=== PATIENT | female | born 1935 | race Caucasian/White ===

== ENCOUNTER 2018-05-08 09:57 | Emergency (ER) | payer MEDICARE, SELFPAY ==
[2018-05-08 10:05] VITALS: BP 153/76; PULSE 68; RESP 16; TEMP 36.5; O2SAT 98
--- NOTE | 2018-05-08 10:19 | ED.GENADUL_ITS ---
Disposition Clinical Impression: Rash, Pruritus Disposition: HOME Condition: Stable Additional Instructions: Your rash appears to be a local skin reaction. You can take benadryl as needed for the symptoms, follow dosing instructions on the packaging. You can also try over the counter steroid cream. follow up with your primary care provider if symptoms are not improving this week if you have high fevers, severe pain or difficulty breathing return to the emergency department Medical Decision Making - Medical Decision Making Pt here with symptoms that could be contact dermatitis or other local allergic response. Has no findings to suggest anaphylaxis, will have her treat symptoms with prn benadryl and topical steroid cream. she is concerned about possible bed bugs, advised I do not believe these appear to be a rash typical of this but advised if other house hold members get similar rash they may need to dispose of bedding and clean. Will d/c home - Differential Diagnosis dermatitis, tick illness, urticaria History of Present Illness - General Chief complaint: RashLesion Stated complaint: RASH ON ARMS Time Seen by Provider: 05/08/18 10:09 Source: patient Mode of arrival: ambulatory Limitations: no limitations - History of Present Illness Initial comments: 82 yo female comes in with 2 days of multiple small <3mm red papules on her upper arms and thighs. Denies fevers, pain, known tick or bug bites. No sob or other symptoms, states the areas are itchy. Hasn't tried anything for these. Travelled to [place] recently otherwise no recent travel. No warmth or fluctuance to any of the rash or crepitus or pain MD Complaint: rash Onset/Timin -: days(s) Improves with: none Worsens with: none - Related Data Aspirin 81 mg PO DAILY tab-cap 06/15/14 Carvedilol [Coreg] 3.125 mg PO BID #180 tab-cap 06/01/17 Lorazepam 1 tab PO BID PRN #50 tab 10/17/17 Allergies Allergy/AdvReac Type Severity Reaction Status Date / Time metoprolol AdvReac Intermediate sick all Unverified 04/04/18 13:05 over atenolol AdvReac Tingling Unverified 04/04/18 13:05 in LE's atorvastatin AdvReac Nausea Unverified 04/04/18 13:05 clopidogrel bisulfate AdvReac esophageal Unverified 04/04/18 13:05 [From Plavix] spasm hydrochlorothiazide AdvReac Confusion Unverified 04/04/18 13:05 lisinopril AdvReac Nausea Unverified 04/04/18 13:05 Review of Systems Constitutional: denies: fever Respiratory: denies: shortness of breath Cardiovascular: denies: chest pain Musculoskeletal: denies: back pain Skin: rash Neurological: denies: headache Comment: All other systems reviewed and negative Past Medical History - Past Medical History Medical history: hypertension - Social History Alcohol use: none Drug use: none General Exam - General Limitations: no limitations General appearance: alert, in no apparent distress - Head Head exam: Present: atraumatic - Eye Eye exam: Present: normal apperance - ENT ENT exam: Present: mucous membranes moist - Neck Neck exam: Present: normal inspection - Respiratory Respiratory exam: Absent: respiratory distress - Cardiovascular Cardiovascular Exam: Present: regular rate - Neurological Exam Neurological exam: Present: alert, oriented X3 - Psychiatric Psychiatric exam: Present: normal affect - Skin Skin exam: Present: warm, rash Course Vital Signs - 24 hr 05/08/18 10:05 Temperature 97.7 F Pulse 68 Respiratory 16 Rate Blood Pressure 153/76 Pulse Oximetry 98
[2018-05-08 10:38] VITALS: BP 153/76; PULSE 68; RESP 16; TEMP 36.5; O2SAT 98
[2018-05-10 12:08] LABS: Lyme Ab w Rflx to Lyme Confirm Negative
[2018-05-10 22:27] LABS: Anaplasma phagocytophilum Negative (Negative); B. miyamotoi PCR Negative (Negative); Babesia divergens/MO-1 Negative (Negative); Babesia duncani Negative (Negative); Babesia microti Negative (Negative); Ehrlichia chaffeensis Negative (Negative); Ehrlichia ewingii/canis Negative (Negative); Ehrlichia muris eauclairensis Negative (Negative)
== END 2018-05-08 10:35 | disposition home or self-care (01) ==
PROVIDERS: Emergency Provider Emergency Medicine; PCP Family Medicine
DX: R21 Rash and other nonspecific skin eruption (principal); L29.9 Pruritus, unspecified; I10 Essential (primary) hypertension
CPT/HCPCS: 99282 ×2; 36415; 86618; 87798

== ENCOUNTER 2018-07-25 08:32 | Outpatient (CLI) | payer MEDICARE, SELFPAY ==
[2018-07-25 14:44] LABS: ALT 27 U/L (12-78); AST 22 U/L (15-37); Albumin 3.7 g/dL (3.4-5.0); Alkaline Phosphatase 66 U/L (46-116); Anion Gap 9.8 mmol/L (3-11); BUN 15 mg/dL (7-18); Bilirubin, Total 0.5 mg/dL (0.2-1.0); CO2 28.2 mmol/L (21.0-32.0); CREATININE 0.78 mg/dL (0.55-1.02); Calcium 9.2 mg/dL (8.5-10.1); Chloride 102 mmol/L (98-107); Glucose 110 mg/dL (70-100); Potassium 4.6 mmol/L (3.5-5.1); Sodium 140 mmol/L (136-145); Total Protein 6.7 g/dL (6.4-8.2)
== END 2018-07-25 08:52 ==
PROVIDERS: PCP Family Medicine; Visit Provider Family Medicine
DX: I10 Essential (primary) hypertension (principal)
CPT/HCPCS: 36415; 80053

== ENCOUNTER 2018-11-16 00:25 | Outpatient (CLI) | payer MEDICARE, SELFPAY ==
--- NOTE | 2018-11-16 07:30 | MERGE_ITS ---
*[facility]* *[facility]* [address] [place] [address] Date of study: 11/16/2018 Transthoracic Echocardiography M-mode, complete 2D, complete spectral Doppler, and color Doppler *STUDY CONCLUSIONS* Summary: 1. Left ventricle: The cavity size was normal. Wall thickness was increased in a pattern of mild LVH. Systolic function was normal. The estimated ejection fraction was 60-65%. Wall motion was normal; there were no regional wall motion abnormalities. 2. Mitral valve: Prior procedures included surgical repair. An annular ring prosthesis was present. Mild thickening, consistent with myxomatous proliferation. There was trivial regurgitation. Mean gradient (D): 3.1mm Hg at 62 bpm. 3. Left atrium: The atrium was mildly dilated. 4. Right ventricle: The cavity size was normal. Wall thickness was normal. Systolic function was normal. 5. Right atrium: The atrium was mildly dilated. 6. Tricuspid valve: There was mild-moderate regurgitation. 7. Pulmonary arteries: Pulmonary systolic pressure was increased, in the range of 40mm Hg to 45mm Hg. *PATIENT PRESENTATION* Height: 152.4cm ((60in) ) S/D Pressure: 144 / 75 Weight: 55.3kg ((121.7lb) ) BSA: 1.54m^2 Test start time: 07:40 AM. Test stop time: 08:40 AM. ORDERING Marychuy Cervantes REFERRING Marychuy Cervantes PERFORMING Unknown PERFORMING [facility] SHUT[employer] CAR RT Wilfredo PooleR)(SHASTA)VANESSA *PROCEDURE DATA* Procedure information: The patient was identified by two identifiers. This study was interpreted by [facility]. Pertinent images and digital data are archived for permanent storage and are available for subsequent review. Comparison was made to the study of 09/10/2016. Study status: Routine. Transthoracic echocardiography. M-mode, complete 2D, complete spectral Doppler, and color Doppler. A Transthoracic Echocardiogram was performed. Scanning was performed from the parasternal, apical, subcostal, and suprasternal notch acoustic windows. Images were obtained using an [id number] cardiac ultrasound machine. Image quality was adequate. Study completion: The patient tolerated the procedure well. There were no complications. History: PMH: Shortness of breath hypertension. I10, r06.02. *CARDIAC ANATOMY* Left ventricle: The cavity size was normal. Wall thickness was increased in a pattern of mild LVH. Systolic function was normal. The estimated ejection fraction was 60-65%. Wall motion was normal; there were no regional wall motion abnormalities. The study is not technically sufficient to allow evaluation of LV diastolic function. Aortic valve: Trileaflet; normal thickness leaflets. Mobility was not restricted. Doppler: Transvalvular velocity was within the normal range. There was no stenosis. There was no significant regurgitation. VTI ratio of LVOT to aortic valve: 0.76. Valve area (VTI): 2.4cm^2. Indexed valve area (VTI): 1.6cm^2/m^2. Peak velocity ratio of LVOT to aortic valve: 0.78. Valve area (Vmax): 2.5cm^2. Indexed valve area (Vmax): 1.6cm^2/m^2. Mean velocity ratio of LVOT to aortic valve: 0.77. Valve area (Vmean): 2.4cm^2. Indexed valve area (Vmean): 1.6cm^2/m^2. Mean gradient (S): 3.1mm Hg. Peak gradient (S): 4.3mm Hg. Aorta: Aortic root: The aortic root was normal in size. Ascending aorta: The ascending aorta was normal in size. Mitral valve: Prior procedures included surgical repair. An annular ring prosthesis was present. Mild thickening, consistent with myxomatous proliferation. Mobility was not restricted. Doppler: Transvalvular velocity was within the normal range. There was no evidence for stenosis. There was trivial regurgitation. Valve area by pressure half-time: 1.8cm^2. Indexed valve area by pressure half-time: 1.2cm^2/m^2. Mean gradient (D): 3.1mm Hg at 62 bpm. Peak gradient (D): 5.2mm Hg. Left atrium: The atrium was mildly dilated. Right ventricle: The cavity size was normal. Wall thickness was normal. Systolic function was normal. Pulmonic valve: Structurally normal valve. Doppler: Transvalvular velocity was within the normal range. There was no evidence for stenosis. There was mild regurgitation. Peak gradient (S): 2.2mm Hg. Tricuspid valve: Structurally normal valve. Doppler: Transvalvular velocity was within the normal range. There was no evidence for stenosis. There was mild-moderate regurgitation. Pulmonary artery: Pulmonary systolic pressure was increased, in the range of 40mm Hg to 45mm Hg. Right atrium: The atrium was mildly dilated. Pericardium: There was no pericardial effusion. Systemic veins: Inferior vena cava: Well visualized. The vessel was patent and normal in size. The respirophasic diameter changes were in the normal range (greater than or equal to 50%). Baseline ECG: Sinus bradycardia. Measurements Left ventricle Value 09/10/2016 Reference LV ID, ED, PLAX 3.7 cm 3.8 3.5 - 6.0 LV ID, ES, PLAX 2.5 cm 2.9 2.1 - 4.0 LV PW thickness, ED, PLAX 1.1 cm 1.2 LV end-diastolic volume, 65 ml 1-p A2C LV ejection fraction, 1-p 69 % 71 A2C LV end-diastolic volume, 74 ml 1-p A4C LV ejection fraction, 1-p 55 % 52 A4C LV e', lateral 0.074 m/sec LV E/e', lateral 15 LV e', medial 0.054 m/sec LV E/e', medial 21 LV e', average 0.064 m/sec LV E/e', average 18 Ventricular septum Value 09/10/2016 Reference IVS thickness, ED, PLAX 1.1 cm 1.1 LVOT Value 09/10/2016 Reference LVOT ID, A-P 2.0 cm 2.0 LVOT area 3.1 cm^2 3 LVOT peak velocity, S 0.81 m/sec 1.02 LVOT mean velocity, S 0.66 m/sec LVOT VTI, S 22.2 cm 26.2 LVOT peak gradient, S 2.7 mm Hg LVOT mean gradient, S 1.8 mm Hg 1.9 Stroke volume (SV), LVOT 70 ml DP Stroke index (SV/bsa), 45 ml/m^2 LVOT DP Aortic valve Value 09/10/2016 Reference Aortic valve peak 1 m/sec velocity, S Aortic valve mean 0.86 m/sec velocity, S Aortic valve VTI, S 29.0 cm Aortic mean gradient, S 3.1 mm Hg 4 Aortic peak gradient, S 4.3 mm Hg 6 VTI ratio, LVOT/AV 0.76 0.81 Aortic valve area, VTI 2.4 cm^2 2.6 Velocity ratio, peak, 0.78 LVOT/AV Aortic valve area, peak 2.5 cm^2 2.5 velocity Velocity ratio, mean, 0.77 LVOT/AV Aortic valve area, mean 2.4 cm^2 velocity Aortic valve area/bsa, 1.6 cm^2/m^2 mean velocity Aorta Value 09/10/2016 Reference Aortic root ID, ED 3.2 cm Ascending aorta ID, A-P, S 2.6 cm 2.6 Left atrium Value 09/10/2016 Reference LA ID, A-P, ES 3.8 cm LA ID/bsa, A-P (H) 2.5 cm/m^2 <=2.2 LA area, ES, A4C 22.8 cm^2 22 8.8 - 23.4 LA area, ES, A2C 14 cm^2 LA volume/bsa, ES, 1-p A4C 57 ml/m^2 42 LA volume, ES, 2-p 46 ml LA volume/bsa, ES, 2-p 30 ml/m^2 LA/aortic root ratio 1.2 0.85 Mitral valve Value 09/10/2016 Reference Mitral E-wave peak 1.14 m/sec 1.17 velocity Mitral A-wave peak 1.27 m/sec 1.12 velocity Mitral deceleration time (H) 421 ms 150 - 230 Mitral pressure half-time 122 ms 124 Mitral mean gradient, D 3.1 mm Hg Mitral peak gradient, D 5.2 mm Hg 5.4 Mitral E/A ratio, peak 0.9 1.04 Mitral valve area, PHT, DP 1.8 cm^2 1.8 Tricuspid valve Value 09/10/2016 Reference Tricuspid regurg peak 3.1 m/sec 2.7 velocity Tricuspid peak RV-RA 38.2 mm Hg 28.7 gradient Right atrium Value 09/10/2016 Reference RA area, ES, A4C 19.2 cm^2 15 8.3 - 19.5 Pulmonic valve Value 09/10/2016 Reference Pulmonic peak gradient, S 2.2 mm Hg 7.8 Legend: (L) and (H) deja values outside specified reference range. I have personally reviewed the images and have reviewed and edited the reported findings. Electronically signed by Lazaro Joe 11/16/2018 10:05
== END 2018-11-16 00:45 ==
PROVIDERS: PCP Family Medicine; Visit Provider Family Medicine
DX: R06.02 Shortness of breath (principal); I10 Essential (primary) hypertension; I51.7 Cardiomegaly; Z95.2 Presence of prosthetic heart valve
CPT/HCPCS: 93306

== ENCOUNTER 2018-11-23 00:18 | Outpatient (CLI) | payer MEDICARE, SELFPAY ==
--- NOTE | 2018-11-23 06:59 | MERGEMPI_ITS ---
*[facility]* *[facility]* [address] [place] [address] Myocardial Perfusion Imaging - SPECT Venkata protocol Date of study: 11/23/2018 *PATIENT PRESENTATION* Height: 154.9cm (61in) Blood Pressure: Weight: 56.4kg (124lb) BSA: 1.57m^2 Referring physician: Lazaro Joe Ordering physician: Marychuy Cervantes Impressions: - Study suggests small myocardial infarction, in the territory of the left anterior descending coronary artery. - No evidence for myocardial ischemia. Summary: 1. Myocardial perfusion imaging: There is a small sized, moderately intense, fixed defect involving the anterolateral wall(s). This suggests small myocardial infarction in the distribution of the left anterior descending coronary artery. 2. The calculated left ventricular ejection fraction after stress: 71%. LV global systolic function is normal. 3. Stress ECG conclusions: The stress ECG is negative. Occasional ventricular ectopy. 4. Stress: The target heart rate was achieved. The heart rate response to stress is normal. There is resting hypertension with an appropriate response to stress. The patient experienced no chest pain during stress. Exercise capacity is above normal for age. 5. Treadmill exercise testing was performed using the Venkata protocol. The patient exercised for 6 min, to protocol stage 2, to a maximal work rate of 7.5mets. Exercise was terminated due to fatigue. Recommendations: 1. Medical management is recommended. 2. Clinical correlation is recommended. Indication: R06.2, I10, Appropriate Use Criteria: A (Appropriate). History: REASON FOR TESTING: SOB AND FEELING WARM'/FLUSHED WHEN WALKING ON THE RAIL TRAIL. NO DIZZYNESS AND NO CHEST PAIN REPORTED WITH THE SOB. SHE DENIES CHEST PAIN UPON ARRIVAL TO TESTING TODAY. SIGNIFICANT PAST MEDICAL HISTORY: CT 2011, STENT PLACEMENT 08/2012, MITRAL VALVE REPAIR 09/2014. SMOKING STATUS: NEVER. EXERCISE ROUTINE: WINTER=WALKS 1.5 MILES AT THE MALL THREE TO FIVE DAYS A WEEK. SUMMER=WALKS ONE TO THREE MILES ON THE RAIL TRAIL THREE TO FIVE DAYS A WEEK. Risk factors: Family history of coronary artery disease. Hypertension. Dyslipidemia. Cholesterol: 225mg/dl. HDL: 99mg/dl. LDL: 117mg/dl. Triglycerides: 50mg/dl. ALLERGIES: METOPROLOL, ATENOLOL, ATORVASTATIN, PLAVIX, HYDROCHLOROTHIAZIDE, LISINOPRIL. MEDICATIONS: ASPIRIN 81 MG DAILY, COREG 3.125 MG BID. Imaging Technique: Protocol: Venkata protocol. Acquisition: Gated SPECT; 1 day - rest/stress. The patient was imaged in the supine position. Attenuation correction used. Isotope administration: - Rest. Tc[99m]-sestamibi. Dose: 10.8mCi. Injection time: 10:30 AM. Injection to stress time: 00:45. - Stress. Tc[99m]-sestamibi. Dose: 31.4mCi. Injection time: 01:25 PM. 1-2 min before end of exercise Baseline ECG: SINUS RHYTHM. HR 61 BPM. Normal ECG. Stress protocol: + +---+ + !Stage !HR !BP (mmHg) ! + +---+ + !Baseline supine !61 !170/88 (115) ! + +---+ + !Baseline standing !76 !180/100 (127)! + +---+ + !Stage I; 1.7mph, 10degrees; 3 min !101!160/80 (107) ! + +---+ + !Stage II; 2.5mph, 12degrees; 3 min!125!190/80 (117) ! + +---+ + !Peak stress !130! ! + +---+ + !Recovery; 1 min !101!210/72 (118) ! + +---+ + !Recovery; 3 min !82 !180/80 (113) ! + +---+ + !Recovery; 6 min !72 !160/80 (107) ! + +---+ + * Stress results: STRESS TEST ENDED IN 6 MINUTES 17 SECONDS DUE TO FATIGUE. NOTE: PATIENT TOOK CARVEDILOL 3.125 MG AT 0700 THIS MORNING. NORMAL HEART RATE RESPONSE TO EXERCISE. HYPERTENSIVE BLOOD PRESSURE AT BASELINE. BLOOD PRESSURE DECREASED BY 20 mm/Hg DURING STAGE 1 OF EXERCISE. OTHERWISE NORMAL BLOOD PRESSURE RESPONSE. MAX HEART RATE: 130 94 % OF TARGET HEART RATE ACHIEVED. MET'S: 7.46 FREQUENT PVC'S WITH EXERCISE AND FIRST MINUTE OF RECOVERY. OTHERWISE OCCASIONAL PVC'S. NO ANGINA. NO SIGNIFICANT ST SEGMENT CHANGES. FUNCTIONAL CAPACITY: ABOVE AVERAGE CAPACITY. Maximal heart rate during stress was 130bpm (94% of maximal predicted heart rate). The maximal predicted heart rate was 138bpm. The target heart rate was achieved. The heart rate response to stress is normal. There is resting hypertension with an appropriate response to stress. The rate-pressure product for the peak heart rate and blood pressure was 45390bd Hg/min. The patient experienced no chest pain during stress. Exercise capacity is above normal for age. Stress ECG: The stress ECG is negative. Occasional ventricular ectopy. Martinez treadmill score: 6. This score predicts a low risk of cardiac events. Myocardial perfusion: Imaging information: gated. The image quality was good. Left ventricular size is normal. There is a small sized, moderately intense, fixed defect involving the anterolateral wall(s). This suggests small myocardial infarction in the distribution of the left anterior descending coronary artery. Ventricular Function (Wall Motion): The calculated left ventricular ejection fraction after stress: 71%. LV global systolic function is normal. Study data: Lazaro Joe MD supervised and was readily available during the procedure. This study was interpreted by [facility]. Study status: Routine. Consent: The risks, benefits, and alternatives to the procedure were explained to the patient and informed consent was obtained. Procedure: Initial setup. A baseline ECG was recorded. Surface ECG leads and manual cuff blood pressure measurements were monitored. Heart sounds: Normal. Lung sounds: Normal. Treadmill exercise testing was performed using the Venkata protocol. The patient exercised for 6 min, to protocol stage 2, to a maximal work rate of 7.5mets. Exercise was terminated due to fatigue. Study completion: All catheters inserted during the procedure were removed. The patient tolerated the procedure well and was discharged from the lab. Discharge: The patient left the laboratory in stable condition. Birthdate: Patient birthdate: 1935. Sex: Gender: female. Study date: Study date: 11/23/2018. Study time: 00:01 AM. Signature Documentation: - The imaging portion of this study was interpreted by Nuclear Reed Fixer Lazaro Joe MD. - The imaging portion of this study was interpreted by Nuclear Radiologist Wiley Smith MD. - The Stress ECG portion of this study was interpreted by Lazaro Joe MD. Electronically signed by Lazaro Joe 11/23/2018 15:29
== END 2018-11-23 00:38 ==
PROVIDERS: PCP Family Medicine; Visit Provider Family Medicine
DX: R06.02 Shortness of breath (principal); I25.2 Old myocardial infarction; I10 Essential (primary) hypertension; E78.5 Hyperlipidemia, unspecified; Z82.49 Family history of ischemic heart disease and other diseases of the circulatory system; Z95.2 Presence of prosthetic heart valve
CPT/HCPCS: 78452; 93016; 93018; 93017

== ENCOUNTER 2018-11-24 11:32 | Outpatient (CLI) | payer MEDICARE, SELFPAY ==
[2018-11-24 12:57] LABS: Iron 84 ug/dL (50-175)
[2018-11-24 13:02] LABS: Hemoglobin A1C 6.1 % (4.5-6.2)
[2018-11-24 13:14] LABS: Absolute Basophil Count 0.02 k/cumm (0.0-0.2); Absolute Eosinophil Count 0.15 k/cumm (0.0-0.7); Absolute Lymphocyte Count 1.21 k/cumm (1.2-3.4); Absolute Monocyte Count 0.29 k/cumm (0.11-0.7); Absolute Neutrophil Count 2.39 k/cumm (1.2-6.7); Basophils % 0.5; Eosinophils % 3.7; HCT 34.7 % (36.0-46.0); HGB 11.4 g/dL (12.0-15.5); Lymphocytes % 29.8; Mean Corp. HGB Concentration 32.9 g/dL (32.0-36.0); Mean Corpuscular Hemoglobin 31.2 pg (27.0-33.0); Mean Corpuscular Volume 95.1 fL (80-95); Mean Platelet Volume 9.8 fL (8.0-11.0); Monocytes % 7.1; Neutrophils % 58.9; Platelet Count 196 x1000/uL (130-400); RBC 3.65 m/cumm (4.00-5.20); RBC Distribution Width 13.1 % (11.7-14.6); White Blood Cell Count 4.06 k/cumm (4.4-10.8)
[2018-11-24 13:24] LABS: ALT 18 U/L (12-78); AST 18 U/L (15-37); Albumin 3.3 g/dL (3.4-5.0); Alkaline Phosphatase 71 U/L (46-116); Anion Gap 4.3 mmol/L (3-11); BUN 25 mg/dL (7-18); Bilirubin, Total 0.4 mg/dL (0.2-1.0); CO2 29.7 mmol/L (21.0-32.0); CREATININE 0.74 mg/dL (0.55-1.02); Chloride 106 mmol/L (98-107); Cholesterol 237 mg/dL (50-200); Glucose 110 mg/dL (70-100); HDL Cholesterol 99 mg/dL (40-60); LDL CHOLESTEROL 111 mg/dL (<100); Potassium 4.3 mmol/L (3.5-5.1); Sodium 140 mmol/L (136-145); TSH (W/Ref FT4) 1.57 uIU/mL (0.358-3.74); Total Protein 6.3 g/dL (6.4-8.2); Triglyceride 84 mg/dL (30-150); Vitamin B12 507 pg/mL (193-986)
== END 2018-11-24 11:52 ==
PROVIDERS: PCP Family Medicine; Visit Provider Family Medicine
DX: R73.09 Other abnormal glucose (principal); I10 Essential (primary) hypertension; R71.8 Other abnormality of red blood cells; I27.20 Pulmonary hypertension, unspecified; I07.1 Rheumatic tricuspid insufficiency; R06.02 Shortness of breath
CPT/HCPCS: 36415; 80053; 80061; 83721; 82607; 83036; 83540; 84443; 85025

== ENCOUNTER 2019-09-25 20:30 | Emergency (ER) | payer MEDICARE, SELFPAY ==
[2019-09-25] VITALS (7 sets, daily range): BP systolic 146–191; BP diastolic 67–88; PULSE 64–89; RESP 13–21; TEMP 36.7; O2SAT 96–97
--- NOTE | 2019-09-25 20:50 | W.ED.GENAD ---
Discharge Plan Disposition Patient Disposition: HOME Condition: Stable Discharge Details Chief Complaint: GenMedical Clinical Impression: SOB (shortness of breath) Primary Care Provider: Marychuy Cervantes ED Provider: Mateusz Chester Home Meds and New Rx's Prescriptions: Continued ranitidine HCl 150 mg tablet 150 mg PO BID PRNRF: 0 aspirin [Aspirin Low-Strength] 81 MG tablet,chewable 81 mg PO DAILY RF: 0 lorazepam 0.5 MG tablet 1 tab PO BID PRNQty: 50 RF: 3 carvedilol [Coreg] 3.125 mg tablet 3.125 mg PO BID Qty: 180 RF: 12 Discharge Instructions Instructions: Dyspnea (ED) Additional Instructions: follow up with your primary care provider within a week if you feel more ill, have worsening shortness of breath or fevers or pain return to the emergency department Medical Decision Making <Lloyd Mendoza DO - Last Filed: 09/25/19 22:33> This is an 84-year-old female with a past medical history of previous myocardial infarction 5 years ago with a stent, mitral valve repair, no history of tobacco abuse, who presents today for evaluation of weakness and tremulousness. Patient states that today she went cross-country skiing, and after she went cross-country skiing she developed mild weakness in her arms and legs, and felt tremulous, as well as mild shortness of breath that resolved on its own. She states that this feels similar but slightly different than when she had her heart attack 5 years ago. She denies any chest pain, chest heaviness, chest tightness, arm neck or shoulder pain.. Exam is notably unremarkable. Differential includes mild dehydration, muscle spasms, but also certainly atypical cardiac etiology. Initial EKG does not demonstrate evidence of STEMI. Will do serial troponins, give full dose aspirin, and reassess. EKG 20: 56 Rate 75, intervals normal, sinus rhythm, inverted T wave in V1, bifid P wave, suggestive of left atrial enlargement. No Q waves except for in V1 and V2, no significant ST elevation or depression, no evidence of STEMI. Morphology of ST segments as well as the entire EKG is consistent with previous EKG on 07/15/2015. FINDINGS: Lungs: Hyperinflation, unchanged. No consolidation. Pleural space: Unremarkable. No pleural effusion. No pneumothorax. Heart/Mediastinum: Prior valve surgery. No cardiomegaly. Bones/joints: Scoliosis. Prior median sternotomy. Degenerative changes of the spine. Demineralization IMPRESSION: No acute findings. Thank you for allowing us to participate in the care of your patient. Dictated and Authenticated by: Mk Armendariz DO 09/25/2019 9:49 PM Eastern Time ([place] & [place]) <Mateusz Chester MD - Last Filed: 09/26/19 00:14> pt's troponin 0.07, remains asymptomatic so do not feel additional troponin indicated. She feels well enough and has no complaints, will d/c and have her f/u with pcp, return precautions given Lab Data Lab results reviewed: Yes I reviewed the patient's lab results. HPI <Lloyd Mendoza DO - Last Filed: 09/25/19 22:33> General Date/Time Provider Initiated Documentation: 09/25/19 20:36. HPI Narrative: This is an 84-year-old female with a past medical history of previous myocardial infarction 5 years ago with a stent, mitral valve repair, no history of tobacco abuse, who presents today for evaluation of weakness and tremulousness. Patient states that today she went cross-country skiing, and after she went cross-country skiing she developed mild weakness in her arms and legs, and felt tremulous, as well as mild shortness of breath that resolved on its own. She states that this feels similar but slightly different than when she had her heart attack 5 years ago. She denies any chest pain, chest heaviness, chest tightness, arm neck or shoulder pain. Denies PE risk factors such as recent long car rides, immobilization, recent surgery, prior history of DVT or PE, family history of PE or DVT, morbid obesity, exogenous estrogen and smoking, hemoptysis, history of cancer. Patient denies any other complaints at this time. No other modifying factors. Related Data Home Medications Medication Instructions Recorded Confirmed aspirin [Aspirin Low-Strength] 81 mg PO DAILY tab-cap 06/15/14 09/25/19 lorazepam 1 tab PO BID PRN #50 tab 10/17/17 09/25/19 carvedilol 3.125 mg tablet 3.125 mg PO BID #180 tab-cap 06/19/19 09/25/19 ranitidine HCl 150 mg tablet 150 mg PO BID PRN tab 07/04/19 09/25/19 Previous Rx's Medication Instructions Recorded carvedilol 3.125 mg tablet 3.125 mg PO BID #180 tab-cap 06/19/19 Allergies Allergy/AdvReac Type Severity Reaction Status Date / Time metoprolol AdvReac Intermediate sick all Unverified 09/25/19 20:40 over atenolol AdvReac Tingling Unverified 09/25/19 20:40 in LE's atorvastatin AdvReac Nausea Unverified 09/25/19 20:40 clopidogrel bisulfate AdvReac esophageal Unverified 09/25/19 20:40 [From Plavix] spasm hydrochlorothiazide AdvReac Confusion Unverified 09/25/19 20:40 lisinopril AdvReac Nausea Unverified 09/25/19 20:40 General Stated Complaint: GenMedical JULIANN: 3 Review of Systems <Lloyd Mendoza DO - Last Filed: 09/25/19 22:33> All systems reviewed & are unremarkable except as noted in HPI and below PFSH <Lloyd Mendoza DO - Last Filed: 09/25/19 22:33> Medical History (Updated 04/07/19 @ 11:46 by Rubi Valdez) Arthralgia of both hands (Chronic 04/04/18) Cataracts, bilateral (Resolved) 01/31/15 Chest pain (Resolved) EGD NEG; RELIEVED BY NM RELAXERS. Esophageal disorder (Chronic 12/23/16) Essential hypertension (Chronic 08/10/13) H/O mitral valve replacement (Chronic 11/26/16) Idiopathic scoliosis (Chronic) SEVERE Insomnia (Chronic 01/31/15) Left sided abdominal pain (Resolved) 06/17/17 Left sided sciatica (Chronic 03/18/17) LLQ abdominal pain (Resolved) 03/18/17 Lower extremity weakness (Resolved) 08/23/14 Mitral valve regurgitation (Chronic 08/29/13) moderate to severe by ech 09/01 repair 10/04 Myocardial infarction (Resolved) 11/01/12 Need for subacute bacterial endocarditis prophylaxis (Chronic 05/07/15) Piriformis muscle pain (Chronic 03/18/17) Pyloric ulcer associated with Helicobacter pylori (Resolved) biopsy results from endoscopy done in 09/28 Rash and nonspecific skin eruption (Resolved 05/19/18) Reactive airway disease (Resolved) 09/24/14 Shoulder pain (Resolved) 04/28/14 Skin lesions (Resolved 07/13/16) SOB (shortness of breath) (Chronic 11/26/16) Strain of left iliopsoas muscle (Chronic 03/18/17) Tachycardia (Resolved) 11/01/12 Tricuspid valve regurgitation (Chronic 08/29/13) moderate by echo 08/2013 Ventricular arrhythmia (Resolved) 09/25/12 Vitamin D deficiency (Chronic 11/28/15) Surgical History (Updated 04/07/19 @ 11:46 by Rubi Valdez) Endoscopy (~01/2013) Extraction of cataract 07/23/15; DR. JONES; RIGHT EYE 08/13/15; DR. JONES; LEFT EYE H/O cataract removal with insertion of prosthetic lens (Resolved) 07/23/15 O.D.-07/23/2015, O.S.-08/13/2015 History of intravascular stent placement (Resolved) 09/14/12 Mitral valve repair (10/15/14) Stent placement (09/14/12) Family History Mother , AGE 86 Essential hypertension Father , SUICIDE at age 76. Alcohol abuse Brother Heart disease CABG Son No problems noted. Daughter Essential hypertension Daughter No problems noted. Social History (Updated 10/11/18 @ 08:39 by Emilee Borrero) Smoking/Tobacco Use Status: Never Second Hand Exposure: Yes Alcohol Intake: current Alcohol Intake frequency: a few times a month Alcohol type: wine Drug use: Never Substance use type: does not use Caregiver/Support person: No Housing: apartment Pets and animals: No Sexually active: No Do you think of yourself as: straight/heterosexual Current gender identity: female Duration: 45-60 minutes/day Frequency: 5-6 times per week Zoe/Sikh: Scientology Special zoe needs: No Additional Social history: unable to assess privately Exam <Lloyd Mendoza DO - Last Filed: 09/25/19 22:33> Narrative Exam Narrative: 1.Const: Well-nourished, Well-developed, appearing stated age 2.Eyes: PERRL, no conjunctival injection, and symmetrical lids. 3.ENT: Atraumatic external nose and ears. Moist MM. Neck: Symmetric, trachea midline, No thyromegaly. 4.CVS: +S1/S2, No murmurs or gallops. Peripheral pulses 2+ and equal in all extremities. Brisk capillary refill in all extremities. Radial pulses equal bilaterally. 5.RESP: Unlabored respiratory effort. Clear to auscultation bilaterally. No wheezes rales or rhonchi 6.GI: Soft, Nontender/Nondistended, No hepatosplenomegaly. No guarding or rebound. 7.MSK: Normocephalic/Atraumatic, Extremities w/o deformity or ttp No cyanosis or clubbing, Normal movement of all extremities 8.Skin: Warm, Dry. No rashes or lesions. 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 Sensation grossly intact, no focal neurologic deficits. 10.Psych: (AAO) x3. Appropriate mood and affect Course <Lloyd Mendoza DO - Last Filed: 09/25/19 22:33> Vital Signs Vital signs: Vital Signs Temperature 36.7 C 09/25/19 20:37 Pulse 89 09/25/19 20:37 Respiratory Rate 20 09/25/19 20:37 Blood Pressure 182/88 H 09/25/19 20:37 Pulse Oximetry 96 09/25/19 20:37 Temperature 36.7 C 09/25/19 20:37 Pulse 89 09/25/19 20:37 Respiratory Rate 20 09/25/19 20:37 Respiratory Effort Non-Labored 09/25/19 20:41 Blood Pressure 182/88 H 09/25/19 20:37 Blood Pressure Position Sitting 09/25/19 20:37 Pulse Oximetry 96 09/25/19 20:37 Oxygen Delivery Method Room Air 09/25/19 20:37 Oxygen Flow Rate 0 09/25/19 20:37 Pain Level 0 09/25/19 20:37 Comment 09/25/19 20:37 Sign Out <Lloyd Mendoza DO - Last Filed: 09/25/19 22:33> Sign Out Data: Sign Out Comment: Pending serial troponins Last updated by Lloyd Mendoza DO at 09/25/19 23:01
--- NOTE | 2019-09-25 21:05 | DI.RAD_ITS ---
EXAM: XR CHEST 2V PA LATERAL INDICATION: chest pain. COMPARISON: No exams were available for comparison TECHNIQUE: 2D digital imaging was performed. FINDINGS: Severe scoliosis, sternal wires and valve prosthesis are again noted. The lungs appear clear. No in filtrate, effusion or pneumothorax is seen. IMPRESSION: No acute abnormality.
[2019-09-25 21:41] LABS: Abs Immature Grans 0.01 k/cumm (0.0-0.09); Absolute Basophil Count 0.02 k/cumm (0.0-0.2); Absolute Eosinophil Count 0.09 k/cumm (0.0-0.7); Absolute Lymphocyte Count 1.37 k/cumm (1.2-3.4); Absolute Neutrophil Count 3.09 k/cumm (1.2-6.7); Basophils % 0.4; Eosinophils % 1.8; HCT 35.7 % (36.0-46.0); Immature Grans % 0.2 %; Mean Corp. HGB Concentration 33.6 g/dL (32.0-36.0); Mean Corpuscular Hemoglobin 31.7 pg (27.0-33.0); Mean Corpuscular Volume 94.4 fL (80-95); Mean Platelet Volume 9.2 fL (8.0-11.0); Monocytes % 9.8; Neutrophils % 60.8; Platelet Count 199 x1000/uL (130-400); RBC 3.78 m/cumm (4.00-5.20); RBC Distribution Width 13.1 % (11.7-14.6); White Blood Cell Count 5.08 k/cumm (4.4-10.8)
--- NOTE | 2019-09-25 21:49 | DI.VRAD_ITS ---
PROCEDURE INFORMATION: Exam: XR Chest, 2 Views Exam date and time: 09/25/2019 8:50 PM Age: 84 years old Clinical indication: Prior surgery; Surgery date: 6+ months; Surgery type: Valve replacement 2014, stent placed 2011; Patient HX: Chest pain after cross country skiing today TECHNIQUE: Imaging protocol: XR of the chest Views: 2 views. COMPARISON: CR CHEST 2 VIEWS PA,LAT 01/28/2016 10:12 AM FINDINGS: Lungs: Hyperinflation, unchanged. No consolidation. Pleural space: Unremarkable. No pleural effusion. No pneumothorax. Heart/Mediastinum: Prior valve surgery. No cardiomegaly. Bones/joints: Scoliosis. Prior median sternotomy. Degenerative changes of the spine. Demineralization IMPRESSION: No acute findings. Dictated and Authenticated by: Mk Armendariz MD. Ordering:AYUSH Desai MD
[2019-09-25 22:03] LABS: ALT 21 U/L (14-59); AST 20 U/L (15-37); Albumin 3.7 g/dL (3.4-5.0); Alkaline Phosphatase 60 U/L (46-116); Anion Gap 10.8 mmol/L (3-11); BUN 16 mg/dL (7-18); Bilirubin, Total 0.5 mg/dL (0.2-1.0); CO2 26.2 mmol/L (21.0-32.0); CREATININE 0.83 mg/dL (0.55-1.02); Calcium 9.2 mg/dL (8.5-10.1); Chloride 105 mmol/L (98-107); Glucose 184 mg/dL (74-106); Potassium 3.9 mmol/L (3.5-5.1); Sodium 142 mmol/L (136-145); Total Protein 7.1 g/dL (6.4-8.2)
[2019-09-25 22:07] LABS: Lipase 111 U/L (73-393); Troponin I < 0.05 ng/Ml (<0.06)
[2019-09-25] MEDS: Normal Saline 500 ML IV (22:45)
[2019-09-25] MEDS: Aspirin 81 MG CHEW 324 MG CH (22:46)
[2019-09-26] LABS: Troponin I 0.07 ng/Ml (<0.06)
[2019-09-26 00:20] VITALS: BP 153/73; PULSE 67; RESP 18; TEMP 36.7; O2SAT 96
--- NOTE | 2019-09-26 07:16 | NUR.NOTE ---
Nursing Note: Referral for follow up faxed to PCP. Emilee Ontiveros.
== END 2019-09-26 00:25 | disposition home or self-care (01) ==
PROVIDERS: Student in an Organized Health Care Education/Training Program; Emergency Provider Emergency Medicine; PCP Family Medicine
DX: R06.02 Shortness of breath (principal); I25.10 Atherosclerotic heart disease of native coronary artery without angina pectoris; Z95.5 Presence of coronary angioplasty implant and graft; I10 Essential (primary) hypertension
CPT/HCPCS: 36415; 80053; 83690; 93005; 96360; 99285; 71046; 84484; 85025; 93010; 99284

== ENCOUNTER 2019-10-03 00:39 | Outpatient (CLI) | payer MEDICARE, SELFPAY ==
--- NOTE | 2019-10-03 11:14 | DI.NM_ITS ---
APPROVED REPORT Exam: Exercise Treadmill Patient Location: Out-Patient Room/Bed: Stress Nurse: Sary Barakat RN BMI: 23.61 Baseline Rhythm: Sinus Bradycardia Indications: Patient presented to the ER on 09/25/2019 after cross country skiing and ???feeling maida e when I got home??? and also had ???brain fog???. She reports her blood pressure in the ER was high approximately 200/89. She states she has not felt like herself since cross country skiing 1 week ago. She reports her last heart attack in 2011 was after snowshoeing and had no cardiac signs or symptoms except that she ???could not read the print on the newspaper???. Medical History Medical History: PA and stent placement in 08/2012, Mitral Valve Repair in 2011 Cardiac Medications: Aspirin, Carvedilol. Allergies: Metoprolol, Atenolol, Atorvastatin, Plavix, Hydrochlorothiazide, Lisinopril. Cardiac Risk Factors: FHX of CAD, HTN Previous Cardiac Procedures: Valve Replacement Pretest Chest Pain Characteristics: Just not feeling right Exercise History: Physically active Physical Disabilities: None Lung Sounds: Clear to auscultation Heart Sounds: Regular Stress Test Details Test: Exercise stress testing was performed using a Venkata protocol. Rest Isotope: Tc-99m Sestamibi. Dose: 10.2 Date: 10/03/2019 Injection Time: 0930 Stress Isotope: Tc-99m Sestamibi. Dose: 31.3 Date: 10/03/2019 Injection Time: 1140 HR Max Heart Rate (APMHR): 137 bpm Resting HR Supine: 55 bpm Target HR (85% APMHR): 116 bpm Resting HR Standin bpm Max HR Achieved: 141 bpm % of APMHR: 102 HR response to stress: Normal HR response to stress BP Resting BP Supine: 132/80 mmHg Resting BP Standin/80 mmHg Max BP: 178/70 mmHg BP response to stress: Normal blood pressure response to stress. ECG Resting ECG: Sinus Bradycardia with occasional to frequent PVC, and Occasional Ventricular Bigeminy ST Change: Normal Stress ECG: Sinus Tachycardia ST Change: Normal Arrhythmia: VPC's Recovery ECG: Sinus Rhythm Recovery ST Change: Normal Recovery Arrhythmia: None Clinical Reason for Termination: Fatigue Stress Symptoms: None Exercise duration: 6 min23 sec Highest Stage Achieved: Stage 3: 3.4 mph at 14% grade. Exercise capacity: 7.63 METs Functional Capacity: Average Capacity Stress ECG Conclusion 1. The patient exercised for 6 minutes and 23 seconds (7 METS) 2. The patient reached 102% of predicted heart rate and exercise was stopped due to fatigue. 3. There is no evidence of ischemia on the ECG portion of this exam Protocol Used: Venkata Protocol Stress Test Summary STAGE Time (mins) Speed (mph) Grade (%) HR BP SYMPTOMS METS Supine 55 132/80 Standing 66 120/80 1 3 1.7 10 99 142/84 4.6 2 6 2.5 12 122 154/82 7 3 9 3.4 14 10.2 4 12 4.2 16 12.9 5 15 5.0 18 17.2 1 min recovery 115 178/70 3 min recovery 87 160/80 6 min recovery 66 130/74 MPI Conclusion Patient's ejection fraction was 72% with stress. There were no wall motion abnormalities. There is a small fixed perfusion defect at the apex. There was no evidence of significant ischemia. This represents a normal SPECT stress test. Radiologist Interpretation Radiologist Interpretation by: Wiley Smith MD Interpretation Date/Time: 10/03/2019 16:30:21
== END 2019-10-03 00:59 ==
PROVIDERS: PCP Family Medicine; Visit Provider Family Medicine
DX: I25.10 Atherosclerotic heart disease of native coronary artery without angina pectoris (principal); I25.2 Old myocardial infarction; Z95.5 Presence of coronary angioplasty implant and graft; I10 Essential (primary) hypertension; Z82.49 Family history of ischemic heart disease and other diseases of the circulatory system
CPT/HCPCS: 78452; 93016; 93018; 93017

== ENCOUNTER 2019-10-11 09:49 | Outpatient (CLI) | payer MEDICARE, SELFPAY | END 2019-10-11 10:09 | PROVIDERS: PCP Family Medicine; Visit Provider Family Medicine | DX: I49.1 Atrial premature depolarization (principal); I47.2 Ventricular tachycardia | CPT/HCPCS: 93225 ==

== ENCOUNTER 2019-10-13 23:08 | Outpatient (CLI) | payer MEDICARE, SELFPAY ==
--- NOTE | 2019-10-16 08:27 | W.HOLTRPT ---
Date of service: 10/16/19 Time of Service: 08:27 Holter Monitor Report Holter Monitor Note: There is a 2-day Holter monitor ordered for the indication of arrhythmias ?The patient was in normal sinus rhythm for the majority of the recording. ?There were no episodes of supraventricular tachycardia and rare (less than 1%) premature atrial contractions. ?There were no episodes of ventricular tachycardia and occasional (2.6%) single ventricular ectopic beats. ?There were no pauses greater than 3 seconds, no atrial fibrillation and no evidence of high degree heart block. ?Patient diary events were associated with sinus rhythm, sinus tachycardia and occasional couplet of PVCs.
== END 2019-10-13 23:28 ==
PROVIDERS: PCP Family Medicine; Visit Provider Family Medicine
DX: I49.1 Atrial premature depolarization; I47.2 Ventricular tachycardia
CPT/HCPCS: 93226

== ENCOUNTER 2019-10-16 08:27 | Outpatient (CLI) | payer MEDICARE, SELFPAY | END 2019-10-16 08:47 | PROVIDERS: PCP Family Medicine; Referring Provider Family Medicine; Visit Provider Internal Medicine Cardiovascular Disease | DX: I49.1 Atrial premature depolarization (principal); I47.2 Ventricular tachycardia | CPT/HCPCS: 93227 ==

== ENCOUNTER 2019-10-25 02:23 | Outpatient (CLI) | payer MEDICARE, SELFPAY ==
--- NOTE | 2019-10-25 10:25 | DI.US_ITS ---
APPROVED REPORT EXAM: Comprehensive 2D, Doppler, and color-flow Echocardiogram Patient Location: Out-Patient Quarantine Officer: Eva Whitehead RDCS (AE) Rhythm: Bradycardia Indications: shortness of breath R06.02. Essential hypertension. I10 Conclusion Left Ventricle : The left ventricle is normal size. The left ventricular systolic function is normal. The left ventricular ejection fraction is within the normal range. Mild concentric left ventricular hypertrophy. There is normal LV segmental wall motion. There is grade 2 diastolic dysfunction. LVEF i s estimated to be 55-60%. Right Ventricle : The right ventricle is normal size. The right ventricular systolic function is norm al. Atria : The left atrium size is normal. The right atrium size is normal. Aortic Valve : Aortic valve is trileaflet. No aortic regurgitation is present. 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 No e vidence of mitral valve stenosis. Tricuspid Valve : The tricuspid valve leaflets are thickened , but open well. Moderate tricuspid regu rgitation. Great Vessels : The IVC is dilated in size and collapses >50% with inspiration. Estimated RVSP is 30 -40 mmHg. Compared to echocardiogram from 11/13/2014 at [facility], the mean mitral valve gradient has decreased. Diastolic function was not fully interrogated during that study but she now has elevated filling pressures. Wall motion Left Ventricle The left ventricle is normal size. The left ventricular systolic function is normal. The left ventric ular ejection fraction is within the normal range. Mild concentric left ventricular hypertrophy. Ther e is normal LV segmental wall motion. There is grade 2 diastolic dysfunction. LVEF is estimated to be 55-60%. Right Ventricle The right ventricle is normal size. The right ventricular systolic function is normal. Atria The left atrium size is normal. The right atrium size is normal. Aortic Valve Aortic valve is trileaflet. There is no aortic valvular stenosis. No aortic regurgitation is present. Mitral Valve Status post mitral valve repair (annuloplasty ring and Usman stitch) Mitral valve leaflets are mild ly thickened, consistent with myxomatous proliferation No evidence of mitral valve stenosis. Mild nati ral regurgitation. Tricuspid Valve The tricuspid valve leaflets are thickened , but open well. Moderate tricuspid regurgitation. Pulmonic Valve Pulmonic valve is not well visualized. Great Vessels The aortic root is normal in size. The IVC is dilated in size and collapses >50% with inspiration. Es timated RVSP is 30-40 mmHg. Pericardium There is no pericardial effusion. 2D Dimensions IVSd 1.15 cm F: 0.6-1.0 LV EDV A2C 50.7 mL PWd 1.15 cm F: 0.6 - 1.0 LV EDV A4C 40.0 mL LVDd 3.60 cm F: 3.8 - 5.2 LA Volume Index Biplane 42.1 mL/m2 LVDs 2.50 cm F: 2.2 - 3.5 LA Area A4C 20.28 cm2 Aortic Root 3.05 cm F: 2.7 - 3.3 LA Area A2C 19.84 cm2 RA Area A4C 15.40 cm2 EF AP4 54.8 % LVOT 1.95 cm (M/F) 1.5-2.5 EF AP2 64.1 % Ascending Aorta 2.88 cm F: 2.3 - 3.1 EF BP 59.9 % LVEF (Teich) 58.3 % IVC 2.32 cm LVEF (Coello's) 59.88 % F: 54 - 74 TAPSE 1.80 cm (M/F) <1.7 LV Volume 37.51 mL F: 46 - 106 LV Volume Index 24.35 mL/m2 F: 29 - 61 FS 30.05 % LV Diastology MV E' medial 0.069 (>0.07 m/s) E/A Ratio 1.0 LV E/e MED 17.15 (<14) PV S/D Ratio 2.34 MV E' lateral 0.091 (>0.1 m/s) TR Peak Velocity 2.82 m/s LV E/e LAT 12.90 (<14) Pulm Vein s 1.04 m/s Pulm Vein d 0.45 m/s Pulm Vein a 0.45 m/s LA vol/ BSA A2C s A-L 39.1 mL/m2 LA vol/ BSA A4C s A-L 43.0 mL/m2 Aortic Valve LVOT Area 3.07 cm2 AoV Area Vmax 2.19 cm2 LVOT Vmax 1.02 m/s AoV Area/ BSA (Vmax) 1.42 cm2/m2 LVOT Mean Merrill. 0.69 m/s LUIS ENRIQUE Mean Merrill. 2.04 cm2 LVOT Peak Gr. 4.2 mmHg LUIS ENRIQUE Mean Merrill. Index 1.32 cm2/m2 LVOT Mean Gr. 2.2 mmHg AV Regurg Decel. 1198 msec LVOT VTI 0.257 m AoV Vmax 1.43 (0.5-1.3 m/s) AoV Mean Merrill. 1.04 m/s AoV Peak Grad 8.1 mmHg LVOT SV 78.86 mL AoV Mean Grad 4.7 (<5 mmHg) AoV VTI 0.374 (0.18-0.25 m) AoV Area VTI 2.11 (2.5-4.5 cm2) AoV Area/ BSA (VTI) 1.36 cm/m2 Mitral Valve MV E Max Merrill. 1.18 (0.4-1.3 m/s) MVA VTI 2.81 (4.0-6.0 cm2) MV A Velocity 1.15 (0.4-1.3 m/s) RVOT Peak Gr. 1.99 mmHg E/A Ratio 0.98 RVOT Mean Gr. 1.15 mmHg MV Decel. Time 572 (160-240 msec) MV Mean Gr. 0.7 (<2mmHg) MV PHT 166 msec MVA PHT 1.30 cm2 PV Peak Velocity 0.71 (0.5-1.5 m/s) RVOT Peak Merrill. 0.70 m/s RVOT VTI 0.133 m Tricuspid Valve TR P. Gradient 31.7 mmHg TV Regurg Vmax 2.82 m/s RAP Estimate 8.00 mmHg RVSP 39.7 mmHg
== END 2019-10-25 02:43 ==
PROVIDERS: PCP Family Medicine; Visit Provider Family Medicine
DX: R06.02 Shortness of breath (principal); I10 Essential (primary) hypertension; I34.0 Nonrheumatic mitral (valve) insufficiency; I50.1 Left ventricular failure, unspecified; I25.10 Atherosclerotic heart disease of native coronary artery without angina pectoris; I47.2 Ventricular tachycardia
CPT/HCPCS: 93306

== ENCOUNTER 2020-01-03 01:09 | Outpatient (CLI) | payer MEDICARE, SELFPAY ==
--- NOTE | 2020-01-03 06:45 | DI.US_ITS ---
TECHNIQUE: Ultrasound abdomen performed using standard protocol. COMPARISON: No exams were available for comparison FINDINGS: ABDOMINAL AORTA AND IVC: No evidence of an abdominal aortic aneurysm. PANCREAS: Normal where visualized. LIVER: Normal. Hepatopedal flow in the Portal Vein. No hepatic mass is seen sonographically. GALLBLADDER: No evidence of cholelithiasis. No evidence of wall thickening. No pericholecystic fluid identified. BILIARY SYSTEM: Common bile duct measures 3.5 mm. No intrahepatic biliary ductal dilation. ADAMS'S SIGN: Negative. KIDNEYS: Kidneys are symmetric in size. No evidence of renal calculi. No evidence of hydronephrosis. No renal mass is identified. There is a 1.1 x 0.8 x 0.8 cm simple cyst on the left kidney. SPLEEN: Not enlarged. ASCITES: None seen. IMPRESSION: No acute abnormality. No evidence of cholelithiasis or biliary ductal dilatation. DATA REPOSITORY:
== END 2020-01-03 01:29 ==
PROVIDERS: PCP Family Medicine; Visit Provider Family Medicine
DX: R10.9 Unspecified abdominal pain (principal); N28.1 Cyst of kidney, acquired
CPT/HCPCS: 76700

== ENCOUNTER 2020-10-18 01:44 | Outpatient (CLI) | payer MEDICARE, SELFPAY ==
[2020-10-18 15:09] LABS: ALT 23 U/L (14-59); AST 21 U/L (15-37); Albumin 3.4 g/dL (3.4-5.0); Alkaline Phosphatase 62 U/L (46-116); Anion Gap 4.9 mmol/L (3-11); BUN 21 mg/dL (7-18); Bilirubin, Total 0.3 mg/dL (0.2-1.0); CO2 29.1 mmol/L (21.0-32.0); CREATININE 0.9 mg/dL (0.55-1.02); Calcium 8.9 mg/dL (8.5-10.1); Chloride 106 mmol/L (98-107); Estimated GFR 59.65 (mL/min/1.73m2); Glucose 132 mg/dL (74-106); Potassium 4.3 mmol/L (3.5-5.1); Sodium 140 mmol/L (136-145); Total Protein 6.4 g/dL (6.4-8.2)
== END 2020-10-18 02:04 ==
PROVIDERS: PCP Family Medicine; Visit Provider Family Medicine
DX: I10 Essential (primary) hypertension (principal)
CPT/HCPCS: 36415; 80053

== ENCOUNTER 2020-11-24 16:13 | Emergency (ER) | payer OTHER, MEDICARE, SELFPAY ==
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
--- NOTE | 2020-11-24 16:15 | RT.EKG_ITS ---
APPROVED REPORT Exam: Resting ECG Patient Location: E HR:88 bpm ECG Measurements Heart Rate 88 AXIS NJ 163 P 83 QRSd 129 QRS -6 QT 398 T 68 QTc 483 Conclusion Sinus rhythm...normal P axis, V-rate 60- 99 Atrial premature complexes...SV complexes w/ short R-R intvls Left atrial enlargement...P, P'>60mS, <-0.15mV V1 does not meet sgarbossa criteria IVCD, consider LBBB...QRSd>120, notch/slur R I aVL V5-6 Anterior infarct, acute...ST >0.25mV, V2-V5
[2020-11-24 16:23] VITALS: BP 174/95; PULSE 86; RESP 16; TEMP 36.4; O2SAT 98
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
[2020-11-24] MEDS: Acetaminophen 500 MG TAB 1000 MG PO (16:45)
[2020-11-24 17:26] LABS: Absolute Basophil Count 0.03 10^3/uL (0.0-0.2); Absolute Eosinophil Count 0.12 10^3/uL (0.0-0.7); Absolute Monocyte Count 0.49 10^3/uL (0.1-0.8); Absolute Neutrophil Count 7.59 10^3/uL (1.2-6.7); Basophils % 0.3; Eosinophils % 1.2; HCT 39.7 % (36.0-46.0); Lymphocytes % 14.4; MCH 31.9 pg (27.0-33.0); MCHC 32.7 % (32.0-36.0); MCV 97.5 fL (80-95); MPV 9.4 fL (8.0-11.0); Neutrophils % 78.1; Nucleated RBC 0 %; Platelet Count 181 10^3/uL (130-400); RBC 4.07 10^6/uL (3.93-5.22); RDW 12.6 % (11.7-14.6); RDW-SD 44.9 fL; WBC 9.73 10^3/uL (4.4-10.8)
[2020-11-24 17:39] LABS: ALT 44 U/L (14-59); AST 54 U/L (15-37); Alkaline Phosphatase 78 U/L (46-116); Anion Gap 8.4 mmol/L (3-11); BUN 18 mg/dL (7-18); Bilirubin, Total 0.6 mg/dL (0.2-1.0); CO2 27.6 mmol/L (21.0-32.0); CREATININE 0.9 mg/dL (0.55-1.02); Calcium 9.2 mg/dL (8.5-10.1); Chloride 103 mmol/L (98-107); Estimated GFR 59.65 (mL/min/1.73m2); Glucose 130 mg/dL (74-106); PTT Activated 23.3 sec (21.0-27.5); Potassium 4.2 mmol/L (3.5-5.1); Prothrombin Time 9.9 sec (9.3-11.0); Sodium 139 mmol/L (136-145); Total Protein 7.9 g/dL (6.4-8.2)
[2020-11-24 17:47] LABS: Troponin I 0.51 ng/mL (<0.06)
[2020-11-24] MEDS: Omnipaque 350 MG/ML 50 ML BTL IJ ×2 (18:02→18:03)
[2020-11-24] MEDS: Normal Saline - Diluent 50 ML VIAL IV (18:03)
[2020-11-24] MEDS: Normal Saline Flush 10 ML SYR IVP (18:03)
[2020-11-24 18:22] VITALS: BP 141/85; PULSE 96; RESP 18; TEMP 36.6; O2SAT 95
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
[2020-11-24 18:53] VITALS: PULSE 95; RESP 18; O2SAT 95
[2020-11-24 18:54] VITALS: BP 163/88; PULSE 95; RESP 20; O2SAT 95
[2020-11-24 19:00] VITALS: PULSE 99; RESP 19; O2SAT 97
[2020-11-24 19:01] VITALS: BP 165/97; PULSE 97; PULSE 99; RESP 20; O2SAT 97
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
[2020-11-24 21:45] LABS: COVID-19 PCR Negative (Negative)
== END 2020-11-24 20:05 | disposition short-term general hospital (02) ==
PROVIDERS: Emergency Provider Emergency Medicine; PCP Family Medicine
DX: S16.1XXA Strain of muscle, fascia and tendon at neck level, initial encounter (principal); S22.018A Other fracture of first thoracic vertebra, initial encounter for closed fracture; S22.41XA Multiple fractures of ribs, right side, initial encounter for closed fracture; R10.10 Upper abdominal pain, unspecified; R77.8 Other specified abnormalities of plasma proteins; V43.52XA Car driver injured in collision with other type car in traffic accident, initial encounter; Z03.818 Encounter for observation for suspected exposure to other biological agents ruled out
CPT/HCPCS: 36415; 74177; 80053; 93005; 99285; 70450; 71260; 72125; 84484; 85025; 85610; 85730; 93010; Q9967

== ENCOUNTER 2021-06-23 00:56 | Outpatient (CLI) | payer MEDICARE, SELFPAY ==
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
== END 2021-06-23 01:16 ==
PROVIDERS: PCP Family Medicine; Visit Provider Family Medicine
DX: R06.02 Shortness of breath (principal)
CPT/HCPCS: 71046

== ENCOUNTER 2021-07-02 04:09 | Outpatient (CLI) | payer MEDICARE, SELFPAY ==
[2021-07-02 12:44] LABS: ALT 20 U/L (14-59); AST 20 U/L (15-37); Albumin 3.6 g/dL (3.4-5.0); Alkaline Phosphatase 61 U/L (46-116); Anion Gap 7.8 mmol/L (3-11); BUN 19 mg/dL (7-18); Bilirubin, Total 0.5 mg/dL (0.2-1.0); CO2 30.2 mmol/L (21.0-32.0); CREATININE 0.9 mg/dL (0.55-1.02); Calcium 9.1 mg/dL (8.5-10.1); Calculated LDL 134 mg/dL (<100); Chloride 103 mmol/L (98-107); Cholesterol 243 mg/dL (<200); Estimated GFR 59.51 (mL/min/1.73m2); Glucose 109 mg/dL (74-106); HDL Cholesterol 99 mg/dL (40-60); Potassium 4.7 mmol/L (3.5-5.1); Sodium 141 mmol/L (136-145); Total Protein 6.7 g/dL (6.4-8.2); Triglyceride 53 mg/dL (<150)
== END 2021-07-02 04:10 | disposition home or self-care (01) ==
LOC: LBO 04:09
PROVIDERS: PCP Family Medicine; Visit Provider Family Medicine
DX: I10 Essential (primary) hypertension (principal)
CPT/HCPCS: 36415; 80053; 80061

== ENCOUNTER 2021-07-24 01:36 | Outpatient (CLI) | payer MEDICARE, SELFPAY ==
--- NOTE | 2021-07-24 13:01 | DI.US_ITS ---
APPROVED REPORT EXAM: Comprehensive 2D, Doppler, and color-flow Echocardiogram Patient Location: Out-Patient Lead Network Engineer: Romelia Stephenson RDCS (AE) Indications: Shortness of breath, H/O Mitral valve repair Other Information Study Quality: Adequate Conclusion Normal left ventricular wall thickness and chamber size. Estimated ejection fraction is 60 to 65%. Septal motion suggesting interventricular conduction delay/LBBB Grossly normal right ventricular size and function Both atria are normal in size Aortic valve is trileaflet without stenosis or regurgitation There has been prior mitral valve repair. There is trace to mild mitral regurgitation Normal tricuspid valve with moderate regurgitation. Estimated right ventricular systolic pressure is 39 mmHg Normal pulmonic valve with mild to moderate regurgitation Wall motion Left Ventricle The left ventricle is normal size. The left ventricular systolic function is normal. The left ventric ular ejection fraction is within the normal range. There is normal left ventricular wall thickness. T here is normal LV segmental wall motion. There is no ventricular septal defect visualized. LVEF is 60 -65% Right Ventricle Right ventricle is grossly normal in size. Right ventricular systolic function is grossly normal. The RVSP is 39.0 mmHg. Atria The left atrium size is normal. The right atrium size is normal. The interatrial septum is intact wit h no evidence for an atrial septal defect. Aortic Valve The aortic valve is normal in structure. Aortic valve is trileaflet. There is no aortic valvular sten osis. No aortic regurgitation is present. Mitral Valve Mitral annuloplasty changes are present. No evidence of mitral valve stenosis. Trace to mild mitral r egurgitation. Tricuspid Valve The tricuspid valve is normal in structure. There is no tricuspid valve stenosis. Moderate tricuspid regurgitation. RVSP 39 mmHg Pulmonic Valve The pulmonary valve is normal in structure. There is no pulmonic valvular stenosis. Mild to moderate pulmonic regurgitation. Great Vessels The aortic root is normal in size. The ascending aorta is normal in size. Aortic arch is normal in ca liber. IVC is normal in size and collapses >50% with inspiration. Pericardium There is no pericardial effusion. 2D Dimensions IVSD d PLAX 0.99 cm F: 0.6-1.0 LV Vol A2C d MOD 83.7 mL LVPW d PLAX 1.05 cm F: 0.6 - 1.0 LV Vol A4C d MOD 92.0 mL LVID d PLAX 4.11 cm F: 3.8 - 5.2 LA vol/ BSA A4C s A-L 26.2 mL/m2 LVDs 2.85 cm F: 2.2 - 3.5 LA Area A4C s MOD 14.98 cm2 Ao Root d 2.79 cm F: 2.7 - 3.3 LV EF A4C MOD 55.4 % RA Area A4C 8.99 cm2 LV EF A2C MOD 57.7 % RA Vol/ BSA A4C s A-L 13.5 mL/m2 LV EF Biplane MOD 55.9 % Ao Asc Diam d 3.18 cm F: 2.3 - 3.1 SV 50.45 mL LV EF Teichholz 57.7 % SV Index 32.28 mL/m2 LVEF (Coello's) 55.90 % F: 54 - 74 LV Volume 74.00 mL F: 46 - 106 LV Volume Index 47.43 mL/m2 F: 29 - 61 LV Vol Biplane MOD 90.2 mL FS 29.95 % M-Mode TAPSE 2.35 cm (M/F) >1.7 LV Diastology E/A Ratio 0.5 MV E Vmax 0.71 (0.4-1.3 m/s) MV A Vmax 1.30 (0.4-1.3 m/s) MV E/A Ratio 0.55 Aortic Valve LVOT Area 3.33 cm2 AoV Area Vmax 2.43 cm2 LVOT Vmax 0.96 m/s AoV Area/ BSA (Vmax) 1.56 cm2/m2 LVOT Mean Merrill. 0.69 m/s LUIS ENRIQUE Mean Merrill. 2.49 cm2 LVOT Peak Grad 3.7 mmHg LUIS ENRIQUE Mean Merrill. Index 1.60 cm2/m2 LVOT Mean Grad 2.1 mmHg LVOT VTI 0.200 m LVOT Diam s 2.05 cm AoV Vmax 1.32 m/s Velocity Ratio 0.72 AoV Mean Merrill. 0.92 m/s AoV Peak Grad 7.0 mmHg LVOT SV 66.72 mL AoV Mean Grad 3.8 mmHg AoV VTI 0.262 m AoV Area VTI 2.55 cm2 AoV Area/ BSA (VTI) 1.63 cm/m2 Mitral Valve MV DT 510 (160-240 msec) MR Vmax 5.28 m/s MV PHT 148 msec MR VTI 1.529 m MV Area PHT 1.49 cm2 MR Peak Grad 111.5 mmHg MV VTI 0.393 m MR Mean Grad 70.0 mmHg MV Area VTI 1.70 (4.0-6.0 cm2) Pulmonary Valve PV Vmax 1.11 (0.5-1.5 m/s) RVOT Peak Gr. 2.00 mmHg PV Peak Grad 4.9 mmHg RVOT Mean Gr. 1.05 mmHg PV Mean Grad 2.2 mmHg RVOT VTI 0.112 m PV VTI 0.173 m RVOT Vmax 0.71 m/s Tricuspid Valve TR Peak Grad 35.9 mmHg TR Vmax 3.00 m/s RA Pressure 3.00 mmHg RVSP (TR) 39.0 mmHg
== END 2021-07-24 01:56 ==
PROVIDERS: PCP Family Medicine; Visit Provider Family Medicine
DX: R06.02 Shortness of breath (principal); Z95.4 Presence of other heart-valve replacement; I08.8 Other rheumatic multiple valve diseases
CPT/HCPCS: 93306

== ENCOUNTER 2021-12-30 16:36 | Outpatient (CLI) | payer MEDICARE, SELFPAY ==
--- NOTE | 2021-12-30 16:30 | RT.EKG_ITS ---
APPROVED REPORT Exam: Resting ECG Reason for Exam: irregular heartbeat Patient Location: O HR:66 bpm ECG Measurements Heart Rate 66 AXIS NC 157 P 77 QRSd 127 QRS 1 QT 428 T 91 QTc 447 Conclusion Sinus rhythm...normal P axis, V-rate 60- 99 Left atrial enlargement...P, P'>60mS, <-0.15mV V1 Left bundle branch block...QRSd>120, broad/notched R ST elevation secondary to IVCD...Multiple VCG criteria
== END 2021-12-30 16:37 | disposition home or self-care (01) ==
LOC: DI.CM 16:38
PROVIDERS: PCP Family Medicine; Visit Provider Family Medicine
DX: I49.9 Cardiac arrhythmia, unspecified (principal)
CPT/HCPCS: 93010

== ENCOUNTER 2022-01-07 03:01 | Outpatient (CLI) | payer MEDICARE, SELFPAY ==
[2022-01-07 11:13] LABS: HCT 36.1 % (36.0-46.0); HGB 11.8 g/dL (11.2-15.7); MCH 31.6 pg (27.0-33.0); MCHC 32.7 % (32.0-36.0); MCV 96.8 fL (80-95); MPV 9.1 fL (8.0-11.0); Platelet Count 185 10^3/uL (130-400); RBC 3.73 10^6/uL (3.93-5.22); RDW 12.6 % (11.7-14.6); RDW-SD 44.7 fL; WBC 4.44 10^3/uL (4.4-10.8)
[2022-01-07 12:14] LABS: ALT 26 U/L (14-59); AST 21 U/L (15-37); Albumin 3.8 g/dL (3.4-5.0); Alkaline Phosphatase 62 U/L (46-116); Anion Gap 7.4 mmol/L (3-11); BUN 25 mg/dL (7-18); Bilirubin, Total 0.6 mg/dL (0.2-1.0); CO2 29.6 mmol/L (21.0-32.0); CREATININE 0.9 mg/dL (0.55-1.02); Calculated LDL 114 mg/dL (<100); Chloride 105 mmol/L (98-107); Cholesterol 222 mg/dL (<200); Estimated GFR 59.51 (mL/min/1.73m2); Glucose 113 mg/dL (74-106); HDL Cholesterol 98 mg/dL (40-60); Potassium 4.5 mmol/L (3.5-5.1); Sodium 142 mmol/L (136-145); TSH (W/Ref FT4) 2.59 uIU/mL (0.36-3.74); Total Protein 6.7 g/dL (6.4-8.2); Triglyceride 50 mg/dL (<150)
== END 2022-01-07 03:02 | disposition home or self-care (01) ==
LOC: LBO 03:01
PROVIDERS: PCP Family Medicine; Visit Provider Family Medicine
DX: I10 Essential (primary) hypertension (principal); I25.10 Atherosclerotic heart disease of native coronary artery without angina pectoris; R06.02 Shortness of breath
CPT/HCPCS: 36415; 80053; 80061; 85027; 84443

== ENCOUNTER → 2022-01-19 00:03 | Outpatient (CLI) | payer MEDICARE, SELFPAY ==
--- NOTE | 2022-01-19 07:45 | DI.NM_ITS ---
APPROVED REPORT Exam: Pharmacologic Patient Location: Out-Patient Room/Bed: Stress Nurse: Jackelyn Bird RN Ordering Provider:CHLOÉ MALONEY, Contact Number: [phone] BMI: 23.80 Baseline Rhythm: Sinus Bradycardia Comment: LBBB, occasional PACs and PVCs Indications: SOB, CAD Medical History Medical History: Hypertension, mitral valve repair, ventricular arrythmia, hx ID, DARY, SOB, CAD Cardiac Medications: Aspirin, carvedilol, albuterol Allergies: Metoprolol, atenolol, atorvastatin, clopidogrel, HCTZ, lisinopril Cardiac Risk Factors: Hypertension, CVD, family hx Previous Cardiac Procedures: LUIS (2015), mitral valve repair (2016) Pretest Chest Pain Characteristics: None Exercise History: Physically active Physical Disabilities: None Lung Sounds: Clear to auscultation Heart Sounds: Regular Stress Test Details Test: Pharmacologic stress was paired with low level exercise. Reason for pharmacologic stress test: LBBB. Nuclear Acquisition: Rest Tc-99m/Stress Tc-99m 1 day Rest Isotope: Tc-99m Sestamibi. Dose: 9.5 Date: 01/19/2022 Injection Time: 0850 Stress Isotope: Tc-99m Sestamibi. Dose: 32.0 Date: 01/19/2022 Injection Time: 1023 HR Resting HR Supine: 59 bpm Max Heart Rate (APMHR): 135.509440 bpm Resting HR Standin bpm Target HR (85% APMHR): 114.782553 bpm Max HR Achieved: 114 bpm % of APMHR: 84.44 Recovery HR: 74 bpm BP Resting BP Supine: 126/72 mmHg Resting BP Standin/68 mmHg Max BP: 142/78 mmHg Recovery BP: 128/80 mmHg BP response to stress: Normal blood pressure response to stress. ECG Resting ECG: Sinus Bradycardia, LBBB Ectopy: Occasional PACs and PVCs Stress ECG: Sinus Tachycardia, LBBB ST Change: Nondiagnostic LBBB Arrhythmia: Frequent PACs and PVCs Recovery ECG: Sinus Rhythm, LBBB Recovery ST Change: Nondiagnostic LBBB Recovery Arrhythmia: Frequent PACs and PVCs Clinical Stress Symptoms: General Fatigue, Dyspnea, Nausea Rate Pressure Product: [id number] Stress ECG Conclusion 1. Resting electrocardiogram showed a left bundle branch block 2. Patient underwent a combination of pharmacologic stress with regadenoson, coupled with low-level e xercise 3. Peak heart rate achieved was 84% of predicted for age 4. Electrocardiographic portion of the test was nondiagnostic due to LBBB 5. Atrial and ventricular ectopic beats were noted 6. See MPI report Stress Test Summary STAGE HR BP Symptoms NOTES Supine 59 126/72 SpO2 96% 1 min post Lexiscan injection 102 142/78 SpO2 96% Mild SOB 3 min post Lexiscan injection 86 142/76 SpO2 96% Mild SOB, mild nausea 6 min post Lexiscan injection 74 128/80 SpO2 97% SOB resolved, nausea improving Pharmacologic stress was paired with low level exercise due to LBBB. Pt walked at 1.5-1.7 mph and 0% grade during Regadenoson administration. Tolerated testing well. MPI Conclusion Normal myocardial perfusion without evidence of ischemia or prior infarction EF 60%, normal wall motion Radiologist Interpretation Radiologist agrees with Curriculum Development Manager's Interpretation. Radiologist Interpretation by: Marilu Allen MD Interpretation Date/Time: 01/19/2022 15:11:07
[2022-01-19] MEDS: Regadenoson 0.4 MG/5 ML SYR IVP (10:42)
== END ==
PROVIDERS: PCP Family Medicine; Visit Provider Family Medicine
DX: I25.10 Atherosclerotic heart disease of native coronary artery without angina pectoris (principal); R06.02 Shortness of breath
CPT/HCPCS: 78452; 93016; 93018; 93017; J2785

== ENCOUNTER → 2022-08-20 15:48 | Outpatient (CLI) | payer MEDICARE, SELFPAY ==
--- NOTE | 2022-08-20 15:35 | DI.RAD_ITS ---
Exam(s) XR HIP LT COMPLETE AP PELVIS EXAM: XR HIP LT COMPLETE AP PELVIS CLINICAL HISTORY: Lt hip pain, M25.552, s/p fall. r/o fx hip and pelvis TECHNIQUE: COMPARISON: CR BILATERAL HIPS ADULT from 05/07/2016 FINDINGS: Two views were obtained. There is marked scoliosis of the lumbar spine. There are sclerotic changes adjacent to the pubic symphysis. There are mild degenerative changes of the SI joints and both hips . There is no evidence of acute fracture or dislocation involving the left hip. IMPRESSION: RADIATION DOSE DELIVERED: Total DLP
== END ==
PROVIDERS: PCP Family Medicine; Visit Provider Nurse Practitioner Family
DX: M16.0 Bilateral primary osteoarthritis of hip (principal)
CPT/HCPCS: 73502

== ENCOUNTER 2022-12-25 03:34 | Outpatient (CLI) | payer MEDICARE, SELFPAY ==
[2022-12-25 15:51] LABS: HCT 36.4 % (36.0-46.0); HGB 12.2 g/dL (11.2-15.7); MCHC 33.5 % (32.0-36.0); MCV 96 fL (80-95); MPV 9.3 fL (8.0-11.0); Platelet Count 178 10^3/uL (130-400); RBC 3.81 10^6/uL (3.93-5.22); RDW 12.8 % (11.7-14.6); RDW-SD 44.5 fL; WBC 4.18 10^3/uL (4.4-10.8)
[2022-12-25 16:03] LABS: ALT 25 U/L (14-59); AST 19 U/L (15-37); Albumin 3.6 g/dL (3.4-5.0); Alkaline Phosphatase 71 U/L (46-116); Anion Gap 4.9 mmol/L (3-11); BUN 21 mg/dL (7-18); Bilirubin, Total 0.3 mg/dL (0.2-1.0); CO2 31.1 mmol/L (21.0-32.0); CREATININE 0.9 mg/dL (0.55-1.02); Calcium 9.1 mg/dL (8.5-10.1); Chloride 105 mmol/L (98-107); Estimated GFR 62.26 (mL/min/1.73m2); Glucose 70 mg/dL (74-106); Potassium 3.8 mmol/L (3.5-5.1); Sodium 141 mmol/L (136-145); Total Protein 6.9 g/dL (6.4-8.2)
== END 2022-12-25 03:35 | disposition home or self-care (01) ==
PROVIDERS: PCP Family Medicine; Visit Provider Family Medicine
DX: I10 Essential (primary) hypertension (principal); I25.10 Atherosclerotic heart disease of native coronary artery without angina pectoris; G47.00 Insomnia, unspecified
CPT/HCPCS: 36415; 80053; 85027

== ENCOUNTER 2023-07-30 15:02 | Outpatient (CLI) | payer MEDICARE, SELFPAY ==
[2023-07-30 13:54] LABS: ALT 19 U/L (14-59); AST 18 U/L (15-37); Albumin 3.7 g/dL (3.4-5.0); Alkaline Phosphatase 63 U/L (46-116); Anion Gap 8.8 mmol/L (3-11); BUN 24 mg/dL (7-18); Bilirubin, Total 0.4 mg/dL (0.2-1.0); CO2 28.2 mmol/L (21.0-32.0); CREATININE 1.1 mg/dL (0.55-1.02); Calcium 9.5 mg/dL (8.5-10.1); Calculated LDL 108 mg/dL (<100); Chloride 103 mmol/L (98-107); Cholesterol 226 mg/dL (<200); Estimated GFR 48.63 (mL/min/1.73m2); Glucose 86 mg/dL (74-106); HDL Cholesterol 101 mg/dL (40-60); Potassium 4.3 mmol/L (3.5-5.1); Sodium 140 mmol/L (136-145); Triglyceride 85 mg/dL (<150)
== END 2023-07-30 15:03 | disposition home or self-care (01) ==
LOC: LBO 15:03
PROVIDERS: PCP Family Medicine; Visit Provider Family Medicine
DX: I10 Essential (primary) hypertension (principal)
CPT/HCPCS: 36415; 80053; 80061

== ENCOUNTER → 2023-09-14 12:56 | Outpatient (CLI) | payer MEDICARE, SELFPAY ==
--- NOTE | 2023-09-14 14:50 | DI.RAD_ITS ---
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 TECHNIQUE: 2D digital imaging was performed. Seven views were performed. Lateral views in flexion and extension were performed in addition to the routine views. COMPARISON: CR CERV SP.WITH OBL OR FLEX/EXT from 08/23/2014 FINDINGS: BONES: No fracture or destructive lesion. Vertebral bodies are unremarkable. Facet degenerative baldwin es. DISKS: Severe disc space narrowing and endplate osteophytes. Limited range of motion with flexion an d extension. No subluxation. ALIGNMENT: Reversal of the normal cervical lordosis. Scoliosis. The odontoid and atlantoaxial artic ulations are normal. SOFT TISSUE: Normal. The lung apices are clear. IMPRESSION: Severe degenerative disc changes. Scoliosis. DATA REPOSITORY: RADIATION DOSE DELIVERED:
== END ==
PROVIDERS: PCP Family Medicine; Visit Provider Family Medicine
DX: G62.9 Polyneuropathy, unspecified (principal); M41.82 Other forms of scoliosis, cervical region
CPT/HCPCS: 36415; 72052; 82607; 84443

== ENCOUNTER 2023-09-14 16:46 | Outpatient (CLI) | payer MEDICARE, SELFPAY ==
[2023-09-14 16:25] LABS: Vitamin B12 443 pg/mL (193-986)
== END 2023-09-14 16:47 | disposition home or self-care (01) ==
LOC: LBO 16:47
PROVIDERS: PCP Family Medicine; Visit Provider Family Medicine
DX: G62.9 Polyneuropathy, unspecified (principal); R53.83 Other fatigue
CPT/HCPCS: 36415; 82607; 84443

== ENCOUNTER 2023-12-14 05:17 | Outpatient (CLI) | payer MEDICARE, SELFPAY ==
[2023-12-14 16:53] LABS: ALT 18 U/L (14-59); AST 17 U/L (15-37); Albumin 3.4 g/dL (3.4-5.0); Alkaline Phosphatase 67 U/L (46-116); Anion Gap 6.2 mmol/L (3-11); BUN 21 mg/dL (7-18); Bilirubin, Total 0.5 mg/dL (0.2-1.0); CO2 29.8 mmol/L (21.0-32.0); Calcium 9.1 mg/dL (8.5-10.1); Calculated LDL 101 mg/dL (<100); Chloride 105 mmol/L (98-107); Cholesterol 212 mg/dL (<200); Estimated GFR 54.53 (mL/min/1.73m2); Glucose 138 mg/dL (74-106); HDL Cholesterol 93 mg/dL (40-60); Potassium 3.8 mmol/L (3.5-5.1); Sodium 141 mmol/L (136-145); Total Protein 6.7 g/dL (6.4-8.2); Triglyceride 94 mg/dL (<150)
== END 2023-12-14 05:18 | disposition home or self-care (01) ==
PROVIDERS: PCP Family Medicine; Visit Provider Family Medicine
DX: I10 Essential (primary) hypertension (principal)
CPT/HCPCS: 36415; 80053; 80061

== ENCOUNTER 2024-07-05 02:02 | Outpatient (CLI) | payer MEDICARE, SELFPAY ==
--- NOTE | 2024-07-05 14:30 | DI.US_ITS ---
APPROVED REPORT EXAM: Comprehensive 2D, Doppler, and color-flow Echocardiogram Patient Location: Out-Patient Bundle Person: Romelia Stephenson RDCS (AE) Indications: Pulmonary HTN, h/o Mitral valve ring repair Other Information Study Quality: Adequate Conclusion Mild concentric left ventricular hypertrophy. Ejection fraction is 60%. Wall motion is normal Normal right ventricular size and function Both atria are normal in size Trileaflet aortic valve without stenosis or regurgitation Mildly thickened mitral leaflets, evidence of prior mitral valve repair. Trace mitral regurgitation Normal tricuspid valve with mild to moderate regurgitation. Estimated right ventricular systolic pre ssure is 46 mmHg Wall motion Left Ventricle The left ventricle is normal size. The left ventricular systolic function is normal. The left ventric ular ejection fraction is within the normal range. Mild concentric left ventricular hypertrophy There is normal LV segmental wall motion. There is no ventricular septal defect visualized. LVEF is 60%. Right Ventricle The right ventricle is normal size. The right ventricular systolic function is normal. Atria The left atrium size is normal. The right atrium size is normal. The interatrial septum is intact wit h no evidence for an atrial septal defect. Aortic Valve The aortic valve is normal in structure. Aortic valve is trileaflet. There is no aortic valvular sten osis. No aortic regurgitation is present. Mitral Valve Mitral annuloplasty changes are present. No evidence of mitral valve stenosis. Trace mitral regurgita tion. Tricuspid Valve The tricuspid valve is normal in structure. There is no tricuspid valve stenosis. Mild to moderate t ricuspid regurgitation. The RVSP is 45.8 mmHg. Pulmonic Valve The pulmonary valve is normal in structure. There is no pulmonic valvular stenosis. Trace pulmonic re gurgitation. Great Vessels The aortic root is normal in size. The ascending aorta is normal in size. Aortic arch is not well vis ualized. IVC is normal in size and collapses >50% with inspiration. Pericardium There is no pericardial effusion. 2D Dimensions IVSD d PLAX 1.12 cm F: 0.6-1.0 Ao Root d 2.74 cm F: 2.7 - 3.3 LVPW d PLAX 1.00 cm F: 0.6 - 1.0 Ao Asc Diam d 2.81 cm F: 2.3 - 3.1 LVID d PLAX 4.32 cm F: 3.8 - 5.2 LVDs 2.99 cm F: 2.2 - 3.5 LV EF Teichholz 58.6 % FS 30.73 % LV EDV (Teich) 83.8 mL LV ESV (Teich) 34.7 mL M-Mode TAPSE 1.49 cm (M/F) >1.7 Auto EF LV EDV A4C 88.4 mL LV EDV A2C 69.0 mL LV EDV BP 80.2 mL LV ESV A4C 38.6 mL LV ESV A2C 27.4 mL LV ESV BP 32.9 mL LVEF(%) A4C 56.4 % LVEF(%) A2C 60.3 % LVEF(%) BP 59.0 % LV SV A4C 49.9 ml LV SV A2C 41.6 ml LV SV BP 47.3 ml LV CO A4C 3.4 L/min LV CO A2C 2.8 L/min LV CO BP 3.1 L/min HR A4C 67.27 BPM HR A2C 66.55 BPM LV EDV Index (BP) LA Volume LA Length A4C 4.1 cm LA Length A2C 4.9 cm LA Area A4C s 14.83 cm2 LA Area A2C s 16.34 cm2 LA Vol A4C A-L 45.42 mL LA Vol A2C A-L 46.02 mL LA Vol Biplane A-L 50.0 mL LA Vol/BSA A4C A-L LA Vol/BSA A2C A-L LA Vol/BSA BP A-L 34.0 mL/m2 LA Vol A4C MOD 40.1 mL LA Vol A2C MOD 44.2 mL LA Vol BP MOD 45.8 mL RA Volume RA Area A4C 11.0 cm2 RA ESV A4C (A-L) 27.1mL RA Vol/BSA A4C A-L RA Length A4C 3.8 cm RA ESV A4C (MOD) 25.5mL LV Diastology MV E Vmax 1.07 (0.4-1.3 m/s) MV A Vmax 1.30 (0.4-1.3 m/s) E/A Ratio 0.8 Aortic Valve AoV Vmax 1.15 m/s LVOT Vmax 0.95 m/s AoV Peak Grad 5.3 mmHg LVOT Peak Grad 3.6 mmHg AoV Area (Vmax) 2.44 cm2 LVOT VTI 0.239 m AoV VTI 0.310 m LVOT Mean Grad 2.2 mmHg AoV Mean Merrill. 0.88 m/s LVOT SV 70.81 mL AoV Mean Grad 3.4 mmHg LVOT Diam s 1.90 cm AoV Area (VTI) 2.29 cm2 AV Regurg Peak Gr. 5.31 mmHg Velocity Ratio 0.83 Mitral Valve MV DT 327 (160-240 msec) MV Vmax TIPS 1.66 m/s MV Mean Grad 5.1 (<2mmHg) MV VTI 0.396 m Pulmonary Valve PV Vmax 1.15 (0.5-1.5 m/s) RVOT Vmax 0.64 m/s PV Peak Grad 5.3 mmHg RVOT Peak Gr. 1.6 mmHg PV Mean Merrill 0.68 m/s RVOT VTI 0.131 m PV Mean Grad 2.2 mmHg RVOT Mean Gr. 1.0 mmHg Tricuspid Valve RA Pressure 3.00 mmHg TR Vmax 3.31 m/s TV S' 0.11 m/s TR Peak Grad 43.7 mmHg RVSP (TR) 46.7 mmHg
== END 2024-07-05 02:22 ==
LOC: DI 02:04
PROVIDERS: PCP Family Medicine; Visit Provider Family Medicine
DX: I27.20 Pulmonary hypertension, unspecified (principal)
CPT/HCPCS: 93306

== ENCOUNTER 2024-12-11 02:44 | Outpatient (CLI) | payer MEDICARE, SELFPAY ==
[2024-12-11 10:51] LABS: ALT 19 U/L (14-59); AST 22 U/L (15-37); Albumin 3.5 g/dL (3.4-5.0); Alkaline Phosphatase 65 U/L (46-116); Anion Gap 5.4 mmol/L (3-11); BUN 21 mg/dL (7-18); Bilirubin, Total 0.5 mg/dL (0.2-1.0); CO2 30.6 mmol/L (21.0-32.0); CREATININE 1.1 mg/dL (0.55-1.02); Calcium 9.7 mg/dL (8.5-10.1); Chloride 109 mmol/L (98-107); Estimated GFR 48.33 (mL/min/1.73m2); Glucose 109 mg/dL (74-106); Sodium 145 mmol/L (136-145); TSH (W/Ref FT4) 5.05 uIU/mL (0.36-3.74); Total Protein 6.4 g/dL (6.4-8.2)
[2024-12-11 19:20] LABS: T4, Free 1.5 ng/dL (0.8-2.2)
== END 2024-12-11 02:45 | disposition home or self-care (01) ==
LOC: LBO 02:44
PROVIDERS: PCP Family Medicine; Visit Provider Family Medicine
DX: E03.9 Hypothyroidism, unspecified (principal); I10 Essential (primary) hypertension
CPT/HCPCS: 36415; 80053; 84439; 84443

== ENCOUNTER 2024-12-18 01:48 | Outpatient (CLI) | payer MEDICARE, SELFPAY ==
[2024-12-18 13:10] LABS: ALT 22 U/L (14-59); AST 18 U/L (15-37); Albumin 3.4 g/dL (3.4-5.0); Alkaline Phosphatase 57 U/L (46-116); Anion Gap 5.8 mmol/L (3-11); BUN 20 mg/dL (7-18); Bilirubin, Total 0.6 mg/dL (0.2-1.0); CO2 29.2 mmol/L (21.0-32.0); CREATININE 0.9 mg/dL (0.55-1.02); Calcium 9.1 mg/dL (8.5-10.1); Chloride 108 mmol/L (98-107); Estimated GFR 61.49 (mL/min/1.73m2); Glucose 117 mg/dL (74-106); Potassium 4.3 mmol/L (3.5-5.1); Sodium 143 mmol/L (136-145); Total Protein 6.6 g/dL (6.4-8.2)
== END 2024-12-18 01:49 | disposition home or self-care (01) ==
LOC: LOS 01:49
PROVIDERS: PCP Family Medicine; Visit Provider Family Medicine
DX: I10 Essential (primary) hypertension (principal); R25.2 Cramp and spasm
CPT/HCPCS: 80053

== ENCOUNTER 2025-07-03 10:36 | Outpatient (CLI) | payer MEDICARE, SELFPAY ==
[2025-07-03 12:34] LABS: ALT 18 U/L (14-59); AST 18 U/L (15-37); Albumin 3.3 g/dL (3.4-5.0); Alkaline Phosphatase 50 U/L (46-116); Anion Gap 8.1 mmol/L (3-11); BUN 25 mg/dL (7-18); Bilirubin, Total 0.4 mg/dL (0.2-1.0); CO2 28.9 mmol/L (21.0-32.0); Calcium 8.9 mg/dL (8.5-10.1); Chloride 105 mmol/L (98-107); Estimated GFR 53.85 (mL/min/1.73m2); Glucose 109 mg/dL (74-106); Potassium 4.2 mmol/L (3.5-5.1); Sodium 142 mmol/L (136-145); Total Protein 6.4 g/dL (6.4-8.2)
== END 2025-07-03 10:37 | disposition home or self-care (01) ==
LOC: LOS 10:37
PROVIDERS: PCP Family Medicine; Visit Provider Family Medicine
DX: I10 Essential (primary) hypertension (principal)
CPT/HCPCS: 36415; 80053

== ENCOUNTER → 2025-08-28 14:58 | Outpatient (BNVA) | payer MEDICARE, SELFPAY | PROVIDERS: PCP Family Medicine; Referring Provider Family Medicine; Visit Provider Podiatrist | DX: L60.0 Ingrowing nail (principal); I73.89 Other specified peripheral vascular diseases; M79.671 Pain in right foot; R25.2 Cramp and spasm; E55.9 Vitamin D deficiency, unspecified | CPT/HCPCS: 99215; 93922 ==

== ENCOUNTER → 2025-08-30 14:28 | Outpatient (BNVA) | payer MEDICARE, SELFPAY | PROVIDERS: PCP Family Medicine; Referring Provider Family Medicine; Visit Provider Podiatrist | DX: L60.0 Ingrowing nail (principal); M79.671 Pain in right foot; I73.89 Other specified peripheral vascular diseases | CPT/HCPCS: 99215 ==